=== PATIENT | female | born 1965 ===

== ENCOUNTER 2024-01-05 06:32 | Day surgery (SDC) | payer OTHER ==
[2023-12-27 09:26] LABS: HEMATOCRIT 43.8 % (36.0-45.00); HEMOGLOBIN 14.5 g/dL (12.0-15.00); MEAN CELL VOLUME 78.1 fL (80.00-100.00); MEAN CORPUSCULAR HEMOGLOBIN 25.8 pg (27.00-32.0); PLATELET COUNT 264 K/uL (150-450); RED BLOOD COUNT 5.61 M/uL (4.00-6.00); RED CELL DISTRIBUTION WIDTH 15.7 % (11.5-14.5)
[2023-12-27 09:44] LABS: PH,URINE 5.5 (5.0-8.0); URINE APPEARANCE Cloudy; URINE BILIRRUBIN Negative (NEGATIVE); URINE BLOOD Negative; URINE COLOR Yellow; URINE GLUCOSE Negative (NEGATIVE); URINE LEUKOCYTE Small; URINE NITRATE Negative; URINE PROTEIN Negative (NEGATIVE); URINE UROBILINOGEN 0.2 E.U./dl
[2023-12-27 09:45] LABS: URINE BACTERIA 6336.4 uL (0.0-1933); URINE EPITHELIAL CELLS 52.4 uL (0.0-38.8); URINE RBC 18.4 uL (0.0-20.8); URINE WBC 141.3 uL (0.0-23.2)
[2023-12-27 10:01] LABS: URINE CRYSTALS MANY /HPF
[2023-12-27 10:03] LABS: INR 0.97; PARTIAL THROMBOPLASTIN TIME 29.9 SECONDS (22.0-34.0); PROTHROMBIN TIME 10.2 SECONDS (9.0-11.5)
[2023-12-27 10:11] LABS: ALBUMIN 3.6 gm/dL (3.4-5.0); BILIRUBIN TOTAL 0.28 mg/dL (0.3-1.2); CALCIUM 9.2 mg/dL (8.5-10.1); CREATININE SERUM 0.75 mg/dL (0.55-1.02); GFR 79.93; GLOBULINA 3.6 G/DL (2.4-3.5); POTASSIUM 4.33 mEq/L (3.5-5.1); TOTAL PROTEIN 7.2 gm/dL (6.4-8.2)
[~2024-01-05 06:32] MED LIST: CLONAZEPAM2 MG; PROZAC20 MG; SYNTHROID50 MCG
[2024-01-05] MEDS ORDERED: CEFTRIAXONE SODIUM 2,000 MG VIAL ONE (08:01)
[2024-01-05] MEDS ORDERED: METRONIDAZOLE/SODIUM CHLORIDE 500 MG/100 ML PIGGYBACK IV ONE (08:01)
[2024-01-05] MEDS ORDERED: HEMOSTATIC MATRIX 1 KIT KIT TOP ONE (09:12)
[2024-01-05] MEDS ORDERED: DIBUCAINE 30 GM TUBE ONE (09:12)
[2024-01-05] MEDS ORDERED: BUPIVACAINE HCL/MPF 0.5% 30ML VIAL ONE (09:12)
[2024-01-05] MEDS ORDERED: POVIDONE-IODINE 118 ML BOTT TOP ONE (09:12)
[2024-01-05] MEDS ORDERED: LIDOCAINE HCL 1%/EPINEPHRINE 20ML VIAL IJ ONE (09:13)
== END 2024-01-05 14:10 | disposition home or self-care (01) ==
LOC: CIR.AMB 06:32
PROVIDERS: ATTEND Colon & Rectal Surgery
DX: D12.8 Benign neoplasm of rectum (principal); K92.1 Melena; K64.8 Other hemorrhoids; E03.9 Hypothyroidism, unspecified; F32.A Depression, unspecified; H93.19 Tinnitus, unspecified ear